=== PATIENT | female | born 1960 | race Caucasian/White ===

== ENCOUNTER 2019-07-14 07:00 | Day surgery (SDC) | payer OTHER ==
[~2019-07-14 07:00] MED LIST: CANAVIS PO
[2019-07-14] MEDS ORDERED: Tylenol #3 PO (13:06)
[2019-07-14] MEDS ORDERED: MONDOXYNE NL100 MG PO (13:06)
== END 2019-07-14 15:55 | disposition home or self-care (01) ==
LOC: CIR.AMB 07:00 → ADM 07:45 → CIR.AMB 07:45
DX: D25.0 Submucous leiomyoma of uterus (principal); N84.0 Polyp of corpus uteri